=== PATIENT | male | born 1945 | race Caucasian/White ===

== ENCOUNTER 2018-10-06 14:46 | Emergency (ER) | payer MEDICARE, BC ==
[~2018-10-06] VITALS: Ht 175.3 cm; Wt 77.1 kg
[2018-10-06] MEDS ORDERED: Simvastatin10 MG PO (14:58)
[2018-10-06] MEDS ORDERED: Flomax0.4 MG PO (14:58)
[2018-10-06] MEDS ORDERED: ACYC400 PO (14:58)
== END 2018-10-06 16:27 | disposition home or self-care (01) ==
LOC: ER 14:46
DX: S92.345A Nondisplaced fracture of fourth metatarsal bone, left foot, initial encounter for closed fracture (principal); S40.011A Contusion of right shoulder, initial encounter; N40.0 Benign prostatic hyperplasia without lower urinary tract symptoms; V18.0XXA Pedal cycle driver injured in noncollision transport accident in nontraffic accident, initial encounter
CPT/HCPCS: 29125; 73030; 73120; 99283-25

== ENCOUNTER 2019-09-18 08:55 | Day surgery (SDC) | payer MEDICARE, BC ==
[~2019-09-18] VITALS: Ht 180.3 cm; Wt 76.9 kg
[~2019-09-18 08:55] MED LIST: ACYC400 PO; Flomax0.4 MG PO; Simvastatin10 MG PO
[2019-09-18] MEDS ORDERED: IBUP200 PO (09:22)
--- NOTE | 2019-09-18 10:30 | NUR ---
09/18/19 1030 [place] PATIENT DETERMINED TO BE ASA APPROPRIATE FOR PROPOFOL SEDATION PRIOR TO START OF PROCEDURE BY 3-LEAD EKG REVIEWED WITH PHYSICIAN PRIOR TO START OF PROCEDURE.Patient to ENDO 1History, Chart, Medications and Allergies reviewed before start of procedure.MONITOR INTACT WITH CONTINUOUS PULSE OXIMETRY AND INTERMITTENT BP.O2 VIA N/C INTACT THROUGHOUT SEDATION/PROCEDURE.
--- NOTE | 2019-09-18 11:20 | NUR ---
Patient up to Ambulate independently. Gait steady. Discharge instructions reviewed with patient. Patient verbalizes understanding. Copy given to patient to take home. Discharged via wheelchair to private car for ride home.
== END 2019-09-18 22:48 | disposition home or self-care (01) ==
LOC: ORSCMMR 08:55 → ORD 10:00 → ORSCMMR 10:00
PROVIDERS: Internal Medicine Gastroenterology
PROC: 0DBN8ZX Excision of Sigmoid Colon, Via Natural or Artificial Opening Endoscopic, Diagnostic (ICD-10-PCS; principal; 2019-09-18 10:00)
DX: K92.9 Disease of digestive system, unspecified (principal); E78.00 Pure hypercholesterolemia, unspecified; Z86.010 Personal history of colon polyps; K63.5 Polyp of colon; K57.30 Diverticulosis of large intestine without perforation or abscess without bleeding; Z79.899 Other long term (current) drug therapy
CPT/HCPCS: 88305; J2704; J7120

== ENCOUNTER → 2022-04-04 | Outpatient (CLI) | payer MEDICARE ==
[~2022-04-04] MED LIST changes: +ACET500 PO; +ASPI81CH PO; +FINA5 PO; +IBUP200 PO; +MELO7.5 PO; +OXYC5 PO
== END ==
LOC: PLD 14:48 → LAB SHORT 14:48
DX: D23.22 Other benign neoplasm of skin of left ear and external auricular canal (principal)
CPT/HCPCS: 88305